=== PATIENT | male | born 1940 | race Caucasian/White ===

== ENCOUNTER 2020-12-28 11:26 | Outpatient (CLI) | payer MEDICARE | END 2020-12-28 23:59 | disposition critical access hospital (66) | LOC: EMS 11:26 | DX: R53.83 Other fatigue (principal); R42 Dizziness and giddiness | CPT/HCPCS: A0425; A0427 ==

== ENCOUNTER 2020-12-28 12:06 | Emergency (ER) | payer MEDICARE ==
[2020-12-28] MEDS ORDERED: SODIUM CHLORIDE 0.9% 1,000 ML IV STA (12:54)
--- NOTE | 2020-12-28 13:07 | ED Physician Documentation ---
History of Present Illness - Stated complaint Stated Complaint: WEAKNESS - Chief complaint Chief Complaint: General - History obtained from History obtained from: Patient, Family, EMS - Additonal information Additional information: 80-year-old gentleman with Parkinson's presents with generalized weakness and dizziness. He has a history of orthostasis which she feels is likely related to dehydration. He was orthostatic for EMS. On arrival he is already had about 500 mL of saline and is feeling better. Other complaints include waxing and waning diarrhea/constipation but that is not new. Review of Systems Ten Systems: 10 systems reviewed and negative Constitutional: reports: Fatigue. denies: Fever, Chills Cardiac: denies: Chest pain / pressure, Palpitations Respiratory: denies: Dyspnea, Cough PD PAST MEDICAL HISTORY - Past Medical History Past Medical History: Yes Neuro: Parkinson's - Present Medications Home Medications: Ambulatory Orders Medication Instructions Recorded Confirmed Midodrine [ProAmatine] 2.5 mg PO TID #90 tablet 12/28/20 - Allergies Allergies/Adverse Reactions: Allergies Allergy/AdvReac Type Severity Reaction Status Date / Time No Known Drug Allergies Allergy Verified 12/28/20 12:22 - Living Situation Living Situation: reports: Other (Visiting caregivers and a significant other who is there much of the time.) - Social History Does the pt have substance abuse?: No - Family History Family history: reports: Non contributory PD ED PE NORMAL - Vitals Vital signs reviewed: Yes - General General: Alert and oriented X 3, No acute distress, Other (Mild parkinsonian tremor) - Cardiac Cardiac: RRR, No murmur - Respiratory Respiratory: No respiratory distress, Clear bilaterally - Abdomen Abdomen: Soft, Non tender - Derm Derm: Warm and dry - Extremities Extremities: No edema, No calf tenderness / cord - Neuro Neuro: Alert and oriented X 3, Normal speech Results - Vitals Vitals: Vital Signs - 24 hr 12/28/20 12:17 Temperature 36.7 C Heart Rate 61 Respiratory 14 Rate Blood Pressure 115/77 O2 Saturation 94 Oxygen O2 Source Room air - Labs Labs: Laboratory Tests 12/28/20 12/28/20 13:02 13:02 WBC 5.7 RBC 3.68 L Hgb 12.3 L Hct 35.7 L MCV 97.0 H MCH 33.4 H MCHC 34.5 RDW 12.8 Plt Count 139 MPV 10.1 Neut # (Auto) 3.6 Lymph # (Auto) 1.4 L [place] # (Auto) 0.5 Eos # (Auto) 0.1 Baso # (Auto) 0.0 Absolute Nucleated RBC 0.00 Nucleated RBC % 0.0 Sodium 135 Potassium 4.0 Chloride 103 Carbon Dioxide 25 Anion Gap 7.0 BUN 19 Creatinine 0.7 Estimated GFR (MDRD) 109 Glucose 94 Calcium 8.7 Magnesium 1.9 Total Bilirubin 1.2 H AST 16 ALT < 10 L Alkaline Phosphatase 51 Total Protein 5.8 L Albumin 3.9 Globulin 1.9 L Albumin/Globulin Ratio 2.1 Lipase 32 PD MEDICAL DECISION MAKING - ED course ED course: 80-year-old gentleman with Parkinson's presents with orthostatic hypotension, could be dehydration versus autonomic neuropathy and autonomic issues due to a Parkinson's. Feeling better after fluids. Will start midodrine as a trial until he sees his doctor. Departure - Departure Disposition: Home, Self Care Clinical Impression: Orthostatic hypotension Condition: Good Record reviewed to determine appropriate education?: Yes Instructions: ED Hypotension Orthostatic Prescriptions: Midodrine [ProAmatine] 2.5 mg PO TID #90 tablet Comments: You are seen today for orthostatic hypertension hypotension, this is common in patients with Parkinson's. I am starting a medication called midodrine. We are starting at a fairly low dose. This may help with your symptoms. Start the medication and follow your blood pressures and symptoms. Follow-up with your doctor next week as scheduled to discuss how it is working and potentially titrating the dose if you need a higher dose. Return for new or worsening symptoms. Drink plenty water.
[2020-12-28 13:12] LABS: BASOPHILS % (AUTO) 0.5 %; EOSINOPHILS # (AUTO) 0.1 10^3/uL (0.0-0.7); EOSINOPHILS % (AUTO) 2.1 %; HCT - HEMATOCRIT 35.7 % (42.0-52.0); HGB - HEMOGLOBIN 12.3 g/dL (14.0-18.0); LYMPHOCYTES # (AUTO) 1.4 10^3/uL (1.5-3.5); LYMPHOCYTES % (AUTO) 25.3 %; MEAN CORPUSCULAR HEMOGLOBIN 33.4 pg (27.0-31.0); MEAN CORPUSCULAR HGB CONC 34.5 g/dL (32.0-36.0); MEAN PLATELET VOLUME 10.1 fL (7.4-11.4); MONOCYTES # (AUTO) 0.5 10^3/uL (0.0-1.0); MONOCYTES % (AUTO) 8.1 %; NEUTROPHILS # (AUTO) 3.6 10^3/uL (1.5-6.6); NEUTROPHILS % (AUTO) 63.8 %; PLT - PLATELET COUNT 139 10^3/uL (130-450); RED BLOOD COUNT 3.68 10^6/uL (4.70-6.10); RED CELL DISTRIBUTION WIDTH 12.8 % (12.0-15.0); WHITE BLOOD COUNT 5.7 x10^3/uL (4.8-10.8)
[2020-12-28 13:21] LABS: ALBUMIN 3.9 g/dL (3.2-5.5); ALBUMIN/GLOBULIN RATIO 2.1 (1.0-2.2); ALKALINE PHOSPHATASE 51 IU/L (42-121); ALT ALANINE AMINOTRANSFERASE < 10 IU/L (10-60); AST ASPARTATE AMINOTRANSFERASE 16 IU/L (10-42); BILIRUBIN,TOTAL 1.2 mg/dL (0.2-1.0); BUN - BLOOD UREA NITROGEN 19 mg/dL (6-20); CALCIUM 8.7 mg/dL (8.5-10.3); CARBON DIOXIDE - CO2 25 mmol/L (21-32); CHLORIDE 103 mmol/L (101-111); CREATININE 0.7 mg/dL (0.6-1.2); GFR - MDRD 109 (>89); GLUCOSE 94 mg/dL (70-100); LIPASE 32 U/L (22-51); MAGNESIUM 1.9 mg/dL (1.7-2.8); SODIUM 135 mmol/L (135-145); TOTAL PROTEIN 5.8 g/dL (6.7-8.2)
[2020-12-28 14:20] VITALS: BP 150/87
== END 2020-12-28 14:22 | disposition home or self-care (01) ==
LOC: ED 12:06
DX: I95.1 Orthostatic hypotension (principal); G20 Parkinson's disease
CPT/HCPCS: 36415; 80053; 83690; 83735; 85025; 96360; 99283